=== PATIENT | male | born 1965 | race Caucasian/White ===

== ENCOUNTER 2019-11-21 21:09 | Emergency (ER) | payer SELFPAY ==
[~2019-11-21] VITALS: Ht 167.6 cm; Wt 50.0 kg
[2019-11-21 21:09] VITALS: BP 60/40
[~2019-11-21 21:09] MED LIST: AMIODARONE HCL 50MG/ML 3ML VIAL IV ONE; CALCIUM CHLORIDE 1GM/10ML SYR IV ONE; DEXTROSE 50% WATER 50ML VIAL IV ONE; EPINEPHRINE 0.1MG/ML (1:10,000) 10ML SYR ONE; ETOMIDATE 2MG/ML 10ML VIAL IV ONE; SODIUM BICARBONATE 8.4% MEQ/ML 50ML VIAL IV ONE
== END 2019-11-21 21:15 | disposition expired ==
LOC: ER 21:09
DX: I46.9 Cardiac arrest, cause unspecified (principal); Z89.202 Acquired absence of left upper limb, unspecified level; Z93.3 Colostomy status
CPT/HCPCS: 31500; 92950; 99285; J0282; J3490